=== PATIENT | female | born 1995 | race Caucasian/White ===

== ENCOUNTER 2024-03-16 11:24 | Emergency (ER) | payer OTHER, SELFPAY ==
[2024-03-16 11:25] VITALS: BP 124/78
--- NOTE | 2024-03-16 12:38 | ED.GENMED ---
History of Present Illness
General
Chief Complaint: Flank Pain
Source: patient
Exam Limitations: none
Time Seen by Provider: 03/16/24 11:58
Nursing documentation reviewed up to this point in time: agreed with
Travel History
Have you had any contact with someone who has COVID-19?: No
Do you have any symptoms of coronavirus? Fever > 100 degrees, chills, cough, shortness of breath, sore throat, loss of taste or smell, muscle aches, or headache?: No
History of Present Illness
History of Present Illness:
Patient is a 29-year-old female with past medical history of asthma, anxiety depression presenting to the emergency department today with concerns of right-sided flank discomfort right upper quadrant abdominal pain over the past few days. Also has
noticed darkening of her urine. Denies specific blood. Denies vomiting, denies specific palliation or provocation no change in bowel movements or urination.
Past History
Past History
ED Past Medical History: Asthma, Psychiatric (Night terrors, mood disorder) and Other (Migraines)
ED Past Surgical History: None
Social History
Tobacco: Smoker
Alcohol: None
Drug: Marijuana (smokes 'weed' several times per day)
Personal: Single
Living: with roommate
Employment: Employed
Family History
Family History: Cancer (breast and ovarian cancer) and Other
Review of Systems
Review of Systems
Allergies reviewed?: Yes
All Other Systems: ROS reviewed and negative except as documented in HPI and ROS
Phy Exam
Physical Exam
Physical Exam:
GENERAL: Alert , in no apparent distress
EYE: pupils equal and reactive
NECK: Supple, no significant adenopathy.
ENT: o/p clr, mmm.
CARDIAC: Regular rate and rhythm .
LUNGS: Clear breath sounds bilaterally, no acute respiratory distress, no wheezes/rales/rhonchi
ABDOMEN: Right upper quadrant abdominal pain and right-sided flank discomfort to palpation negative Andrade's. Otherwise soft benign abdomen.
NEUROLOGICAL: Alert and oriented, no focal neuro deficits
SKIN: Warm and dry, skin intact.
MUSCULOSKELETAL: No edema, well perfused.
PSYCH: Normal and appropriate interaction.
Course
Orders/Labs/Results
Orders:
Orders
03/16/24 12:08
CT Abd/Pel (IV only)-DH only Urgent
Comment:
Reason For Exam: right side abd pain and right flank pain
Test Result ONCE
03/16/24 12:22
Complete Blood Count/With Diff Urgent
Comprehensive Metabolic Panel Urgent
HCG, Serum Qualitative Screen Urgent
Lipase Urgent
Urinalysis Reflex To Culture Urgent
Date Specimen was Collected: 03/16/24
Time Specimen was Collected: 12:13
Urine Microscopic Reflex Cult Urgent
Urine Culture Urgent
VERITO Source: U
Specimen Description:
Date Specimen was Collected: 03/16/24
Time Specimen was Collected: 12:13
Abnormal Lab Results
03/16/24
12:22
WBC 14.3 H 10^3/uL
(4.8-10.8)
Abs Immat Gran (auto) 0.1 H 10^3/uL
(0-0.05)
Absolute Neuts (auto) 9.4 H 10^3/uL
(1.4-6.5)
Absolute Lymphs (auto) 3.9 H 10^3/uL
(1.2-3.4)
Absolute Monos (auto) 0.8 H 10^3/uL
(0.1-0.6)
Urine Ketones 1+ A
(Negative)
Leukocyte Esterase Rfl Trace A
(Negative)
Urine Bacteria (Reflex) Moderate A
(Negative)
03/16/24 12:22
03/16/24 12:22
Vital Signs
Initial and Last Documented VS:
Initial Vital Signs
Temp Pulse Resp BP Pulse Ox
98.8 F 88 16 124/78 97
03/16/24 11:25 03/16/24 11:25 03/16/24 11:25 03/16/24 11:25 03/16/24 11:25
Last Documented Vital Signs
Temp Pulse Resp BP Pulse Ox
98.8 F 88 16 124/78 97
03/16/24 11:25 03/16/24 11:25 03/16/24 11:25 03/16/24 11:25 03/16/24 11:25
MDM/Problems Addressed
MDM/Problems Addressed:
29-year-old female presenting to the emergency department today with concerns of right upper quadrant abdominal pain right-sided flank discomfort over the past few days as well as darkening of her urine. Denies similar symptoms in the past vital
signs normal upon arrival plan for labs and imaging for further assessment. White count of 14.3. Chemistry normal, urinalysis not consistent with urinary tract infection normal liver function test normal bilirubin level CT scan without emergent
findings. Patient generally well-appearing throughout ER stay stable for outpatient follow-up she claims that she can follow-up with a primary care doctor next week. Return precautions given.
*Critical Care Note
Total Time (30-74mins, 75-104mins- exclusive of procedures): Not Applicable
ED Attending Note
-
Portions of this chart may have been created with voice recognition software.� Occasional wrong word or��sound alike� substitutions may have occurred due to the inherent limitations of voice recognition software.
Discharge Plan
Departure
Patient Disposition: Home (Routine Discharge)
Date of Disposition: 03/16/24
Time of Disposition: 15:17
Patient with high blood pressure during this ER visit?: No
Condition: Good
Covid-19: Not Applicable
Discharge Problem:
Abdominal pain
Instructions: Flank Pain (DC)
Prescriptions:
No Action
prazosin 1 MG capsule
3 mg PO HS
prazosin 1 MG capsule
2 mg PO AMHS
nicotine 1 EACH patch 24 hour
1 ea topical DAILY
cyclobenzaprine 10 MG tablet
10 mg PO TIDPRN PRN (Reason: pain) Qty: 12 0RF
promethazine-codeine 5 ML syrup
5 ml PO Q4HPRN PRN (Reason: cough) Qty: 4 0RF
methylprednisolone [Medrol (Jason)] 4 MG tablets,dose pack
4 tab PO . DIRECT Qty: 1 0RF
omeprazole 40 MG capsule,delayed release(DR/EC)
40 mg PO Daily Qty: 30 0RF
dicyclomine 20 mg tablet
20 mg PO TID PRN (Reason: abdominal pain) Qty: 20 0RF
prednisone 50 mg tablet
50 mg PO DAILY Qty: 5 0RF
albuterol sulfate [ProAir HFA] 90 mcg/actuation HFA aerosol inhaler
1 puff inhalation Q4HPRN PRN (Reason: shortness of breath) Qty: 8.5 0RF
cyclobenzaprine 10 mg tablet
10 mg PO TID PRN (Reason: muscle spasm) Qty: 14 0RF
acetaminophen-codeine 300-30 mg Tablet
1 tab PO Q4HPRN PRN (Reason: pain) Qty: 6 0RF
Referrals:
Rocco Phan DO [Family Provider] -
Activity Restrictions/Additional Instructions:
You came to the emergency department today with concerns of flank discomfort. You had a reassuring evaluation no emergent findings. Please follow-up closely with your primary care doctor this week. Return to the emergency department for any
worsening, new or concerning symptoms.
Interventions
Interventions:
*ED COVID-19 Vaccine History Last Done: 03/16/24 11:25
EK-Beagwo-Pkkvbkiuqd Assessment Last Done: 03/16/24 12:19
ED-Female Genitourinary Assessment Last Done: 03/16/24 12:19
Discharge Date and Time
Print Language: UKRAINIAN
[2024-03-16 12:39] LABS: % Basophils 0.3 % (0-2); % Eosinophils 0.8 % (0-6); % Immature Granulocytes 0.5 % (0-0.5); % Lymphocytes 27.5 % (20.5-51.1); % Monocytes 5.3 % (1.7-9.3); % Neutrophils 65.6 % (42.2-75.2); Absolute Basophils 0.1 10^3/uL (0-0.2); Absolute Eosinophils 0.1 10^3/uL (0-0.7); Absolute Immature Granulocytes 0.1 10^3/uL (0-0.05); Absolute Lymphocytes 3.9 10^3/uL (1.2-3.4); Absolute Monocytes 0.8 10^3/uL (0.1-0.6); Absolute Neutrophils 9.4 10^3/uL (1.4-6.5); Hematocrit 40.1 % (37.0-47.0); Hemoglobin 13.5 g/dL (12.0-16.0); Mean Corp Hgb Conc. 33.7 g/dL (33.0-37.0); Mean Corpuscular Hgb 27.7 pg (27.0-31.0); Mean Corpuscular Volume 82.3 fL (81.0-99.0); Mean Platelet Volume 10.4 fL (7.4-10.4); Nucleated Red Blood Cells % 0 %; Platelet Count 326 10^3/uL (130-400); Red Blood Cell Count 4.87 10^6/uL (4.20-5.40); Red Cell Dist. Width 13.5 % (11.5-14.5); White Blood Cell Count 14.3 10^3/uL (4.8-10.8)
[2024-03-16 12:42] LABS: Urine Albumin Negative (Neg - Trace); Urine Bilirubin Negative (Negative); Urine Character Clear (Clear); Urine Color Yellow; Urine Glucose Negative (Negative); Urine Ketone 1+ (Negative); Urine Leukocyte Trace (Negative); Urine Nitrite Negative (Negative); Urine Occult Blood Negative (Negative); Urine Specific Gravity 1.015 (<1.030); Urine Urobilinogen Negative (Neg - 1+)
[2024-03-16 12:50] LABS: HCG, Serum Qualitative Screen Negative
[2024-03-16 12:54] LABS: ALT (SGPT) 27 U/L (0-35); AST (SGOT) 22 U/L (14-36); Albumin 4.2 g/dl (3.5-5.0); Alkaline Phosphatase 90 U/L (38-126); Blood Urea Nitrogen 8 mg/dl (7-17); Carbon Dioxide 27 mmol/L (22-30); Chloride 104 mmol/L (98-107); Glucose 84 mg/dl (70-99); Lipase 44 U/L (23-300); Potassium 3.8 mmol/L (3.5-5.1); Sodium 135 mmol/L (135-145); Total Protein 7.1 g/dl (6.3-8.2); eGFR > 60.00
[2024-03-16 13:07] LABS: Urine Squamous Cell >30 /LPF (Few)
[2024-03-16 13:08] LABS: Urine Amorphous Seen; Urine White Cell 0-2 /HPF (0-5)
[2024-03-16 13:09] LABS: Urine Bacteria Moderate (Negative)
== END 2024-03-16 15:56 | disposition home or self-care (01) ==
LOC: EMR 11:24
PROVIDERS: Physician Assistant; EMERGENCY PHYSICIAN Emergency Medicine; FAMILY PHYSICIAN Family Medicine Adult Medicine
DX: R10.11 Right upper quadrant pain (principal); R82.90 Unspecified abnormal findings in urine; J45.909 Unspecified asthma, uncomplicated; F41.9 Anxiety disorder, unspecified; F32.A Depression, unspecified; G43.909 Migraine, unspecified, not intractable, without status migrainosus; F17.200 Nicotine dependence, unspecified, uncomplicated; F12.90 Cannabis use, unspecified, uncomplicated; Z88.1 Allergy status to other antibiotic agents; Z88.8 Allergy status to other drugs, medicaments and biological substances
CPT/HCPCS: 99285; 74177; 80053; 81003; 81015; 83690; 84703; 85025; 87086; Q9967

== ENCOUNTER 2024-09-24 12:51 | Emergency (ER) | payer OTHER, SELFPAY ==
[2024-09-24 12:54] VITALS: BP 122/83
[2024-09-24 13:12] LABS: % Basophils 0.3 % (0-2); % Eosinophils 1.3 % (0-6); % Immature Granulocytes 0.7 % (0-0.5); % Lymphocytes 27.6 % (20.5-51.1); % Monocytes 4.3 % (1.7-9.3); % Neutrophils 65.8 % (42.2-75.2); Absolute Eosinophils 0.2 10^3/uL (0-0.7); Absolute Immature Granulocytes 0.1 10^3/uL (0-0.05); Absolute Lymphocytes 3.7 10^3/uL (1.2-3.4); Absolute Monocytes 0.6 10^3/uL (0.1-0.6); Absolute Neutrophils 8.9 10^3/uL (1.4-6.5); Hematocrit 40.6 % (37.0-47.0); Hemoglobin 13.4 g/dL (12.0-16.0); Mean Corpuscular Hgb 26.7 pg (27.0-31.0); Mean Platelet Volume 10.2 fL (7.4-10.4); Nucleated Red Blood Cells % 0 %; Platelet Count 340 10^3/uL (130-400); Red Blood Cell Count 5.01 10^6/uL (4.20-5.40); White Blood Cell Count 13.5 10^3/uL (4.8-10.8)
[2024-09-24 13:33] LABS: HCG, Serum Qualitative Screen Negative
[2024-09-24 13:35] LABS: ALT (SGPT) 21 U/L (0-35); AST (SGOT) 23 U/L (14-36); Alkaline Phosphatase 81 U/L (38-126); Blood Urea Nitrogen 8 mg/dl (7-17); Calcium 9.1 mg/dl (8.4-10.2); Carbon Dioxide 25 mmol/L (22-30); Chloride 104 mmol/L (98-107); Glucose 104 mg/dl (70-99); Potassium 4.2 mmol/L (3.5-5.1); Sodium 139 mmol/L (135-145); Total Bilirubin 0.6 mg/dl (0.2-1.3); Total Protein 6.9 g/dl (6.3-8.2); eGFR > 60.00
[2024-09-24 15:00] VITALS: BP 130/83
--- NOTE | 2024-09-24 15:12 | ED.GENMED ---
History of Present Illness
General
Chief Complaint: Vaginal Bleeding
Time Seen by Provider: 09/24/24 14:58
History of Present Illness
History of Present Illness:
29-year-old woman with history of ovarian cyst presenting to the emergency department with vaginal bleeding. Patient states that she was diagnosed with an ovarian cyst but is never had any issues with it. Last night she did notice some abdominal
cramping worse on the left side than the right side. She thought it was gas. This morning she woke up and noticed some vaginal bleeding. She states that it is red. She is not using any pads or liners. Her last period was 2 weeks ago. She does
have regular.'s. She did have sexual intercourse yesterday and noticed some light bleeding with that occasionally. She called her ACID TREATER who told her to come in for further evaluation. She denies any lightheadedness dizziness nausea vomiting. She
is not on control. No recent trauma.
Past History
Past History
ED Past Medical History: Asthma, Psychiatric (Night terrors, mood disorder) and Other (Migraines)
ED Past Surgical History: None
Social History
Tobacco: Smoker
Alcohol: None
Drug: Marijuana (smokes 'weed' several times per day)
Personal: Single
Living: with roommate
Employment: Employed
Family History
Family History: Cancer (breast and ovarian cancer) and Other
Phy Exam
Physical Exam
Physical Exam:
GENERAL: in no acute distress
HEENT: normocephalic, extraocular movements intact, moist oral mucosa
NECK: normal inspection
RESPIRATORY: no respiratory distress, clear to auscultation bilaterally
CARDIOVASCULAR: regular rate and rhythm
ABDOMEN/: soft, non-distended, non-tender to palpation, no rebound or guarding
Pelvic: External genitalia without erythema, exudate or discharge. Vaginal vault is without discharge. Cervix is of normal color without lesion. The os is closed. There is scant blood with discharge. No obvious lacerations
EXTREMITIES: non-tender, no edema/swelling
NEUROLOGIC: awake and alert, moves all extremities
SKIN: warm
Course
Orders/Labs/Results
Orders:
Orders
09/24/24 12:57
Test Result ONCE
09/24/24 13:00
Complete Blood Count/With Diff Urgent
Comprehensive Metabolic Panel Urgent
HCG, Serum Qualitative Screen Urgent
09/24/24 15:09
Pelvis & Transvaginal US [US Pelvis W Transvag Combined] Urgent
Comment:
Reason For Exam: cramping, vaginal bleeding, hx cyst
09/24/24 15:44
Urinalysis Reflex To Culture Urgent
Date Specimen was Collected: 09/24/24
Time Specimen was Collected: 12:57
Urine Microscopic Reflex Cult Urgent
Abnormal Lab Results
09/24/24 09/24/24
13:00 15:44
WBC 13.5 H 10^3/uL
(4.8-10.8)
MCH 26.7 L pg
(27.0-31.0)
Abs Immat Gran (auto) 0.1 H 10^3/uL
(0-0.05)
Absolute Neuts (auto) 8.9 H 10^3/uL
(1.4-6.5)
Absolute Lymphs (auto) 3.7 H 10^3/uL
(1.2-3.4)
Immature Gran % 0.7 H %
(0-0.5)
Glucose 104 H mg/dl
(70-99)
Ur Occult Blood Reflex 2+ A
(Negative)
Leukocyte Esterase Rfl Trace A
(Negative)
Urine RBC 3-6 A /HPF
(0-2)
Urine Bacteria (Reflex) Few A
(Negative)
09/24/24 13:00
09/24/24 13:00
Vital Signs
Initial and Last Documented VS:
Initial Vital Signs
Temp Pulse Resp BP Pulse Ox
98.4 F 110 18 122/83 98
09/24/24 12:54 09/24/24 12:54 09/24/24 12:54 09/24/24 12:54 09/24/24 12:54
Last Documented Vital Signs
Temp Pulse Resp BP Pulse Ox
98.4 F 110 18 130/83 98
09/24/24 12:54 09/24/24 12:54 09/24/24 12:54 09/24/24 15:00 09/24/24 15:00
MDM/Problems Addressed
Differential Diagnosis Includes:
Patient is a 29-year-old woman presenting to the emergency department vaginal bleeding and abdominal cramping. Vitals unremarkable and exam does show a benign abdomen. Pelvic exam with scant blood coming from the cervix mixed with discharge.
Differential consists of abnormal uterine bleeding such as fibroid or ovarian cyst rupture. History and exam not consistent with laceration. could be . Can consider STI though less likely given the patient is monogamous and no risk
factors were concern from patient. Will check blood work ultrasound.
*Critical Care Note
Total Time (30-74mins, 75-104mins- exclusive of procedures): Not Applicable
Update Note
Update Note:
On reevaluation patient resting comfortably. She states she has had very minimal bleeding. Ultrasound was no pelvic free fluid. She does have multiple left-sided ovarian cysts. Blood work was unremarkable. Patient given strict return
precautions as well as ACID TREATER follow-up. Will discharge at this time
ED Attending Note
-
Portions of this chart may have been created with voice recognition software.� Occasional wrong word or��sound alike� substitutions may have occurred due to the inherent limitations of voice recognition software.
Discharge Plan
Departure
Patient Disposition: Home (Routine Discharge)
Date of Disposition: 09/24/24
Time of Disposition: 18:16
Patient with high blood pressure during this ER visit?: No
Discharge Problem:
Vaginal bleeding
Prescriptions:
No Action
prazosin 1 MG capsule
3 mg PO HS
prazosin 1 MG capsule
2 mg PO AMHS
nicotine 1 EACH patch 24 hour
1 ea topical DAILY
cyclobenzaprine 10 MG tablet
10 mg PO TIDPRN PRN (Reason: pain) Qty: 12 0RF
promethazine-codeine 5 ML syrup
5 ml PO Q4HPRN PRN (Reason: cough) Qty: 4 0RF
methylprednisolone [Medrol (Jason)] 4 MG tablets,dose pack
4 tab PO . DIRECT Qty: 1 0RF
omeprazole 40 MG capsule,delayed release(DR/EC)
40 mg PO Daily Qty: 30 0RF
dicyclomine 20 mg tablet
20 mg PO TID PRN (Reason: abdominal pain) Qty: 20 0RF
prednisone 50 mg tablet
50 mg PO DAILY Qty: 5 0RF
albuterol sulfate [ProAir HFA] 90 mcg/actuation HFA aerosol inhaler
1 puff inhalation Q4HPRN PRN (Reason: shortness of breath) Qty: 8.5 0RF
cyclobenzaprine 10 mg tablet
10 mg PO TID PRN (Reason: muscle spasm) Qty: 14 0RF
acetaminophen-codeine 300-30 mg Tablet
1 tab PO Q4HPRN PRN (Reason: pain) Qty: 6 0RF
Referrals:
Jacqui De La O MD [Active] -
NONE,* [Family Provider] -
Interventions
Interventions:
*Risk Screen - Suicide Last Done: 09/24/24 12:54
*General Assessment Last Done: 09/24/24 14:57
*Neglect/Abuse Screening Last Done: 09/24/24 12:54
ED- Fall Risk Assessment Last Done: 09/24/24 14:57
*ED COVID-19 Vaccine History Last Done: 09/24/24 14:57
ED-Female Genitourinary Assessment Last Done: 09/24/24 14:57
Discharge Date and Time
Print Language: IRAQI
[2024-09-24 16:52] LABS: Urine Albumin Negative (Neg - Trace); Urine Bilirubin Negative (Negative); Urine Character Slightly Cloudy (Clear); Urine Color Yellow; Urine Glucose Negative (Negative); Urine Ketone Negative (Negative); Urine Leukocyte Trace (Negative); Urine Nitrite Negative (Negative); Urine Occult Blood 2+ (Negative); Urine Urobilinogen Negative (Neg - 1+)
[2024-09-24 17:57] LABS: Urine Squamous Cell >30 /LPF (Few)
[2024-09-24 17:58] LABS: Urine Bacteria Few (Negative); Urine White Cell 0-2 /HPF (0-5)
[2024-09-24 17:59] LABS: Urine Amorphous Seen
[2024-09-24 18:25] VITALS: BP 112/66
== END 2024-09-24 18:26 | disposition home or self-care (01) ==
LOC: EMR 12:51
PROVIDERS: Emergency Medicine; EMERGENCY PHYSICIAN Student in an Organized Health Care Education/Training Program
DX: N93.9 Abnormal uterine and vaginal bleeding, unspecified (principal); R10.9 Unspecified abdominal pain; N83.202 Unspecified ovarian cyst, left side; J45.909 Unspecified asthma, uncomplicated; G43.909 Migraine, unspecified, not intractable, without status migrainosus; F17.200 Nicotine dependence, unspecified, uncomplicated; Z88.1 Allergy status to other antibiotic agents; Z88.8 Allergy status to other drugs, medicaments and biological substances
CPT/HCPCS: 99284; 76830; 76856; 80053; 81003; 81015; 84703; 85025

== ENCOUNTER 2024-11-18 01:39 | Emergency (ER) | payer OTHER, SELFPAY ==
[2024-11-18 01:42] VITALS: BP 110/79
[2024-11-18 02:19] VITALS: BMI 40.2
[2024-11-18 02:24] VITALS: BP 103/65
--- NOTE | 2024-11-18 02:56 | ED.GENMED ---
History of Present Illness
General
Chief Complaint: Headache
Source: patient
Exam Limitations: none
Time Seen by Provider: 11/18/24 02:45
History of Present Illness
History of Present Illness:
This is a 29 year old female that comes in with c/o migraine. States that she doesn't get them very often and she stopped picking up her Rizatriptan. States that she started earlier today with a headache and it continued to get worse. States that
this feels like her normal migraine pattern as she has pain in the back of her head and Temporal area. States that about 2 hours ago she started with vomiting and is light sensitive. States that she also had diarrhea today. Denies any fever, chills,
chest pain, SOB, abd pain, dizziness, urinary burning.
Past History
Past History
ED Past Medical History: Asthma, Hypercholesterolemia, Psychiatric (Night terrors, mood disorder, Anxiety, Depression) and Other (Migraines, Back pain, Ovarian cyst. Eczema, )
ED Past Surgical History: None
Social History
Tobacco: Smoker
Alcohol: None
Drug: Marijuana (smokes 'weed' several times per day)
Personal: Single
Living: with roommate
Employment: Employed
Family History
Family History: Cancer (breast and ovarian cancer) and Other
Review of Systems
Review of Systems
Constitutional: Reports no symptoms; Denies fever or chills
EENT: Reports no symptoms
Respiratory: Reports no symptoms; Denies cough or trouble breathing
Cardiac: Reports no symptoms; Denies chest pain
ABD/GI: Reports nausea, vomiting and diarrhea; Denies abdominal pain
: Reports no symptoms; Denies dysuria, frequency or urgency
Musculoskeletal: Reports no symptoms
Skin: Reports no symptoms
Neurological: Reports headache; Denies dizzy
Psychiatric: Reports no symptoms
Phy Exam
General Physical Exam
General Presentation: no apparent distress
General age: appears stated age
General Skin: warm and dry
General Habitus: normal
General Mental: alert
General Hydration: dry mucous membranes
ENT Exam
ENT Exam: TM's normal, pharynx normal and neck supple
Eye Exam
Eye Exam: EOMI
Cardiovascular Exam
Cardiovascular Exam: regular rate/rhythm, no edema, no murmur and normal peripheral pulses
Pulmonary Exam
Pulmonary Exam: lungs clear, no respiratory distress, no rales, chest non tender, no crackles, no rhonchi, no wheezing and no cough
Gastrointestinal Exam
Gastrointestinal Exam: normal bowel sounds, non tender, soft, no organomegaly, no pulsatile mass and non distended
Musculoskeletal Exam
Musculoskeletal Exam: full ROM and no edema
Skin Exam
Skin Exam: normal color, warm/dry, no rash and no petechia
Psychiatric Exam
Psychiatric Exam: normal mood/affect
Course
Orders/Labs/Results
Orders:
Orders
11/18/24 02:55
0.9% Sodium Chloride 1000 ml [Nss] 1,000 ml IV BOLUS
Diphenhydramine [Benadryl] 25 mg IV NOW STA
Ketorolac [Toradol] 30 mg IV NOW STA
Metoclopramide [Reglan] 10 mg IV NOW STA
11/18/24 03:03
Test Result ONCE
11/18/24 03:06
Complete Blood Count/With Diff Urgent
Comprehensive Metabolic Panel Urgent
HCG, Serum Qualitative Screen Urgent
Abnormal Lab Results
11/18/24
03:06
WBC 13.4 H 10^3/uL
(4.8-10.8)
Hgb 11.9 L g/dL
(12.0-16.0)
MCH 26.9 L pg
(27.0-31.0)
MCHC 32.1 L g/dL
(33.0-37.0)
Abs Immat Gran (auto) 0.1 H 10^3/uL
(0-0.05)
Absolute Neuts (auto) 10.2 H 10^3/uL
(1.4-6.5)
Absolute Monos (auto) 0.7 H 10^3/uL
(0.1-0.6)
Immature Gran % 0.6 H %
(0-0.5)
Neutrophils % 76.2 H %
(42.2-75.2)
Lymphocytes % 16.4 L %
(20.5-51.1)
Glucose 107 H mg/dl
(70-99)
11/18/24 03:06
11/18/24 03:06
Leukocytosis, Hgb slightly low. Glucose nonfasting. HCG negative.
Vital Signs
Initial and Last Documented VS:
Initial Vital Signs
Pulse Resp BP Pulse Ox
83 20 110/79 98
11/18/24 01:42 11/18/24 01:42 11/18/24 01:42 11/18/24 01:42
Last Documented Vital Signs
Pulse Resp BP Pulse Ox
83 20 115/62 98
11/18/24 01:42 11/18/24 01:42 11/18/24 03:00 11/18/24 01:42
MDM/Problems Addressed
Differential Diagnosis Includes:
Migraines
MDM/Problems Addressed:
This is a 29 year old female that comes in with c/o migraines. States that she doesn't get them often but this started yesterday and this continued to get worse all day.
Will medicate for pain and check labs and give IV fluids.
Back into see patient. Patient was sleeping. Awakened. States that she is feeling better. Explained that her White blood cell count is slightly elevated. The fact that patient had vomiting and diarrhea she could have the Viral GI syndrome on top of
her Migraine. Will sent a prescription for Reglan to her pharmacy to help with any nausea. vomiting. Patient to use Tylenol and Ibuprofen for pain. Return with any concerns .
Chronic conditions affecting care:
Migraines
Acute Exacerbation and/or Progression of Chronic Illness:
Migraines
*Pulse Oximetry
Patient hypoxic: no
*EKG
Interpreted by ED Provider?: NA
Rate: EKG- N/A
*Cutting Machine Operator Interpretation
Rate: Cutting Machine Operator- N/A
*Critical Care Note
Total Time (30-74mins, 75-104mins- exclusive of procedures): Not Applicable
ED Attending Note
-
Portions of this chart may have been created with voice recognition software.� Occasional wrong word or��sound alike� substitutions may have occurred due to the inherent limitations of voice recognition software.
Discharge Plan
Departure
Patient Disposition: Home (Routine Discharge)
Date of Disposition: 11/18/24
Time of Disposition: 03:55
Patient with high blood pressure during this ER visit?: No
Condition: Good
Covid-19: Not Applicable
Discharge Problem:
Migraine, Nausea, vomiting and diarrhea
Instructions: Migraines (DC), Acute Diarrhea, Acute Nausea and Vomiting
Prescriptions:
New
metoclopramide HCl [Reglan] 10 mg tablet
10 mg PO Q8HPRN PRN (Reason: nausea and vomiting) Qty: 9 0RF
No Action
prazosin 1 MG capsule
3 mg PO HS
prazosin 1 MG capsule
2 mg PO AMHS
nicotine 1 EACH patch 24 hour
1 ea topical DAILY
cyclobenzaprine 10 MG tablet
10 mg PO TIDPRN PRN (Reason: pain) Qty: 12 0RF
promethazine-codeine 5 ML syrup
5 ml PO Q4HPRN PRN (Reason: cough) Qty: 4 0RF
methylprednisolone [Medrol (Jason)] 4 MG tablets,dose pack
4 tab PO . DIRECT Qty: 1 0RF
omeprazole 40 MG capsule,delayed release(DR/EC)
40 mg PO Daily Qty: 30 0RF
dicyclomine 20 mg tablet
20 mg PO TID PRN (Reason: abdominal pain) Qty: 20 0RF
prednisone 50 mg tablet
50 mg PO DAILY Qty: 5 0RF
albuterol sulfate [ProAir HFA] 90 mcg/actuation HFA aerosol inhaler
1 puff inhalation Q4HPRN PRN (Reason: shortness of breath) Qty: 8.5 0RF
cyclobenzaprine 10 mg tablet
10 mg PO TID PRN (Reason: muscle spasm) Qty: 14 0RF
acetaminophen-codeine 300-30 mg Tablet
1 tab PO Q4HPRN PRN (Reason: pain) Qty: 6 0RF
Referrals:
Rocco Phan DO [Family Provider] - Call in 1-3 days for appt
Activity Restrictions/Additional Instructions:
As discussed, your blood work shows that your White blood cell count is slightly elevated. You may have the Viral GI syndrome that is going around on top of your Migraine. Please increase your water intake to 8-8oz glasses daily. You have had a
prescription for Reglan sent to your Pharmacy. This will help with any nausea/vomiting. Follow up with the family doctor for recheck. You may use Tylenol 1000mg every 6 hours for headache pain and Ibuprofen 600mg every 6 hours with food. IF YOU HAVE
ANY OTHER CONCERNS PLEASE RETURN TO THE EMERGENCY ROOM.
Interventions
Interventions:
*Risk Screen - Suicide Last Done: 11/18/24 01:42
*General Assessment Last Done: 11/18/24 01:42
*Neglect/Abuse Screening Last Done: 11/18/24 03:41
ED- Fall Risk Assessment Last Done: 11/18/24 02:19
*ED COVID-19 Vaccine History Last Done: 11/18/24 01:42
ED- Neurological Assessment Last Done: 11/18/24 02:18
Discharge Date and Time
Print Language: [id number]
[2024-11-18 03:00] VITALS: BP 115/62
[2024-11-18] MEDS: NSS 1000 IV (03:03)
[2024-11-18] MEDS: REGLAN 10 MG IV (03:06)
[2024-11-18] MEDS: BENADRYL 25 MG IV (03:07)
[2024-11-18] MEDS: TORADOL 30 MG IV (03:08)
[2024-11-18 03:21] LABS: % Basophils 0.5 % (0-2); % Eosinophils 1.3 % (0-6); % Immature Granulocytes 0.6 % (0-0.5); % Lymphocytes 16.4 % (20.5-51.1); % Neutrophils 76.2 % (42.2-75.2); Absolute Basophils 0.1 10^3/uL (0-0.2); Absolute Eosinophils 0.2 10^3/uL (0-0.7); Absolute Immature Granulocytes 0.1 10^3/uL (0-0.05); Absolute Lymphocytes 2.2 10^3/uL (1.2-3.4); Absolute Monocytes 0.7 10^3/uL (0.1-0.6); Absolute Neutrophils 10.2 10^3/uL (1.4-6.5); Hematocrit 37.1 % (37.0-47.0); Hemoglobin 11.9 g/dL (12.0-16.0); Mean Corp Hgb Conc. 32.1 g/dL (33.0-37.0); Mean Corpuscular Hgb 26.9 pg (27.0-31.0); Mean Corpuscular Volume 83.9 fL (81.0-99.0); Mean Platelet Volume 10.3 fL (7.4-10.4); Nucleated Red Blood Cells % 0 %; Platelet Count 311 10^3/uL (130-400); Red Blood Cell Count 4.42 10^6/uL (4.20-5.40); Red Cell Dist. Width 13.3 % (11.5-14.5); White Blood Cell Count 13.4 10^3/uL (4.8-10.8)
[2024-11-18 03:40] LABS: HCG, Serum Qualitative Screen Negative
[2024-11-18 03:45] LABS: ALT (SGPT) 28 U/L (0-35); AST (SGOT) 23 U/L (14-36); Albumin 3.6 g/dl (3.5-5.0); Alkaline Phosphatase 104 U/L (38-126); Blood Urea Nitrogen 17 mg/dl (7-17); Calcium 8.4 mg/dl (8.4-10.2); Carbon Dioxide 27 mmol/L (22-30); Chloride 104 mmol/L (98-107); Estimated Creatinine Clearance > 125 ml/min; Glucose 107 mg/dl (70-99); Potassium 4.2 mmol/L (3.5-5.1); Sodium 137 mmol/L (135-145); Total Bilirubin 0.5 mg/dl (0.2-1.3); Total Protein 6.4 g/dl (6.3-8.2); eGFR > 60.00
[2024-11-18 04:00] VITALS: BP 99/78
== END 2024-11-18 04:05 | disposition home or self-care (01) ==
LOC: EMR 01:39
PROVIDERS: Clinical Nurse Specialist Family Health; EMERGENCY PHYSICIAN Emergency Medicine; FAMILY PHYSICIAN Family Medicine Adult Medicine
DX: G43.909 Migraine, unspecified, not intractable, without status migrainosus (principal); R19.7 Diarrhea, unspecified; J45.909 Unspecified asthma, uncomplicated; E78.00 Pure hypercholesterolemia, unspecified; F17.200 Nicotine dependence, unspecified, uncomplicated
CPT/HCPCS: 96374; 96375; 96361; 99284; 80053; 84703; 85025

== ENCOUNTER 2025-05-29 14:54 | Emergency (ER) | payer OTHER, SELFPAY ==
[2025-05-29 14:56] VITALS: BP 124/79
[2025-05-29 16:04] VITALS: BMI 41.4
[2025-05-29 16:19] LABS: Hematocrit 38.8 % (37.0-47.0); Hemoglobin 12.7 g/dL (12.0-16.0); Mean Corp Hgb Conc. 32.7 g/dL (33.0-37.0); Mean Corpuscular Volume 80.7 fL (81.0-99.0); Nucleated Red Blood Cells % 0 %; Platelet Count 335 10^3/uL (130-400); Red Cell Dist. Width 14.0 % (11.5-14.5)
[2025-05-29 16:21] LABS: Urine Character Clear (Clear)
--- NOTE | 2025-05-29 16:23 | ED.GENMED ---
History of Present Illness
General
Chief Complaint: Abdominal Pain
Source: patient
Exam Limitations: none
Time Seen by Provider: 05/29/25 16:09
Nursing documentation reviewed up to this point in time: agreed with
History of Present Illness
History of Present Illness:
Patient to ED with complaint of left sided abd. pain x 2 weeks. States 1 mos ago she was treated with a colon cleanse by private GI for costipation. Since then she has had diarrea. 2 weeks ago she developed left sided abd pain and now notes her
urine is dark. Advised by her GI to come to ED. Denies fever/chills. Reports poor appetite. No vomiting.
Past History
Past History
ED Past Medical History: Asthma, Hypercholesterolemia, Psychiatric (Night terrors, mood disorder, Anxiety, Depression) and Other (Migraines, Back pain, Ovarian cyst. Eczema, )
ED Past Surgical History: Other (wisdom teeth)
Social History
Tobacco: Smoker
Alcohol: None
Drug: Marijuana (smokes 'weed' several times per day) and Other (Meth addiction - clean x 7 years)
Personal: Single
Living: with roommate
Employment: Not employed
Family History
Family History: Cancer (breast and ovarian cancer) and Other
Review of Systems
Review of Systems
Allergies reviewed?: Yes
All Other Systems: ROS reviewed and negative except as documented in HPI and ROS
Constitutional: Reports no symptoms
EENT: Reports no symptoms
Respiratory: Reports no symptoms
Cardiac: Reports no symptoms
ABD/GI: Reports abdominal pain (left sided abd. pain) and diarrhea
: Reports dark urine
Musculoskeletal: Reports no symptoms
Skin: Reports no symptoms
Neurological: Reports no symptoms
Psychiatric: Reports no symptoms
Phy Exam
General Physical Exam
General Presentation: well appearing and mild distress
General age: appears stated age
General Skin: warm and dry
General Habitus: normal
General Mental: alert
Gastrointestinal Exam
Gastrointestinal Exam: soft, no organomegaly, no pulsatile mass, non distended and no cva tenderness
Palpation: left upper quadrant: Moderate tenderness, left lower quadrant: Moderate tenderness, right upper quadrant: No tenderness and right lower quadrant: No tenderness
Musculoskeletal Exam
Musculoskeletal Exam: full ROM and neuro vasc intact
Skin Exam
Skin Exam: normal color, warm/dry and no rash
Psychiatric Exam
Psychiatric Exam: normal mood/affect
Course
Orders/Labs/Results
Orders:
Orders
05/29/25 16:11
Complete Blood Count/With Diff Urgent
Comprehensive Metabolic Panel Urgent
HCG, Serum Qualitative Screen Urgent
Comment: ADD ON
Lipase Urgent
Urinalysis Reflex To Culture Urgent
Date Specimen was Collected: 05/29/25
Time Specimen was Collected: 16:04
Urine Microscopic Reflex Cult Urgent
Urine Culture Urgent
VERITO Source: U
Specimen Description:
Date Specimen was Collected: 05/29/25
Time Specimen was Collected: 16:04
05/29/25 16:21
Ketorolac [Toradol] 30 mg IV NOW STA
Test Result ONCE
05/29/25 16:22
CT Abd/pel W Iv And Oral Contr Urgent
Comment:
Reason For Exam: left abd pain
0.9% Sodium Chloride 1000 ml [Nss] 1,000 ml IV BOLUS
Iohexol [Omnipaque] See Protocol PO NOW STA
05/29/25 16:27
Add On- LAB Urgent
Tests Added?: HCG qual serum
05/29/25 18:28
Dicyclomine HCl [Bentyl] 20 mg .ROUTE .STK-MED ONE
05/29/25 18:31
Dicyclomine HCl [Bentyl] 20 mg IM NOW STA
Abnormal Lab Results
05/29/25
16:11
WBC 14.5 H 10^3/uL
(4.8-10.8)
MCV 80.7 L fL
(81.0-99.0)
MCH 26.4 L pg
(27.0-31.0)
MCHC 32.7 L g/dL
(33.0-37.0)
Abs Immat Gran (auto) 0.1 H 10^3/uL
(0-0.05)
Absolute Neuts (auto) 9.7 H 10^3/uL
(1.4-6.5)
Absolute Lymphs (auto) 3.6 H 10^3/uL
(1.2-3.4)
Absolute Monos (auto) 0.8 H 10^3/uL
(0.1-0.6)
Leukocyte Esterase Rfl 2+ A
(Negative)
Urine Bacteria (Reflex) Many A
(Negative)
Urine Albumin (Reflex) 1+ A
(Neg - Trace)
05/29/25 16:11
05/29/25 16:11
Vital Signs
Initial and Last Documented VS:
Initial Vital Signs
Temp Pulse Resp BP Pulse Ox
98.1 F 92 15 124/79 98
05/29/25 14:56 05/29/25 14:56 05/29/25 14:56 05/29/25 14:56 05/29/25 14:56
Last Documented Vital Signs
Temp Pulse Resp BP Pulse Ox
98.1 F 92 15 106/76 96
05/29/25 14:56 05/29/25 14:56 05/29/25 14:56 05/29/25 17:00 05/29/25 18:36
*Radiology
Radiology exam reviewed: radiology read reviewed
*Pulse Oximetry
SaO2: 98
Oxygen Mode of Delivery: Room air
Patient hypoxic: no
*Critical Care Note
Total Time (30-74mins, 75-104mins- exclusive of procedures): Not Applicable
Update Note
Update Note:
Patient to ED wtih left abd pain. Labs, CT results reviewed with her. No findings to explain her pain. Responded well to dicyclomine. Now pain free. Will discharge home. Given rx for dicyclomine. SHe will follow up wth her private GI. Given
instructions on s/s to return to ED and she is agreeable to plan.
ED Attending Note
-
Portions of this chart may have been created with voice recognition software.� Occasional wrong word or��sound alike� substitutions may have occurred due to the inherent limitations of voice recognition software.
Discharge Plan
Departure
Patient Disposition: Home (Routine Discharge)
Date of Disposition: 05/29/25
Time of Disposition: 20:27
Patient with high blood pressure during this ER visit?: No
Condition: Good
Covid-19: Not Applicable
Discharge Problem:
Abdominal pain
Instructions: Abdominal Pain
Prescriptions:
New
dicyclomine 10 mg capsule
10 mg PO TID PRN (Reason: abdominal pain) Qty: 15 0RF
No Action
prazosin 1 MG capsule
3 mg PO HS
prazosin 1 MG capsule
2 mg PO AMHS
nicotine 1 EACH patch 24 hour
1 ea topical DAILY
cyclobenzaprine 10 MG tablet
10 mg PO TIDPRN PRN (Reason: pain) Qty: 12 0RF
promethazine-codeine 5 ML syrup
5 ml PO Q4HPRN PRN (Reason: cough) Qty: 4 0RF
methylprednisolone [Medrol (Jason)] 4 MG tablets,dose pack
4 tab PO . DIRECT Qty: 1 0RF
omeprazole 40 MG capsule,delayed release(DR/EC)
40 mg PO Daily Qty: 30 0RF
dicyclomine 20 mg tablet
20 mg PO TID PRN (Reason: abdominal pain) Qty: 20 0RF
prednisone 50 mg tablet
50 mg PO DAILY Qty: 5 0RF
albuterol sulfate [ProAir HFA] 90 mcg/actuation HFA aerosol inhaler
1 puff inhalation Q4HPRN PRN (Reason: shortness of breath) Qty: 8.5 0RF
cyclobenzaprine 10 mg tablet
10 mg PO TID PRN (Reason: muscle spasm) Qty: 14 0RF
acetaminophen-codeine 300-30 mg Tablet
1 tab PO Q4HPRN PRN (Reason: pain) Qty: 6 0RF
metoclopramide HCl [Reglan] 10 mg tablet
10 mg PO Q8HPRN PRN (Reason: nausea and vomiting) Qty: 9 0RF
Referrals:
Yamini Ballesteros MD, Resident [Family Provider, General]
Activity Restrictions/Additional Instructions:
Follow up with your community living specialist. Return to the emergency department immediately for any changes in/worsening of your symptoms.
Interventions
Interventions:
*Risk Screen - Suicide Last Done: 05/29/25 14:56
*General Assessment Last Done: 05/29/25 14:56
*Neglect/Abuse Screening Last Done: 05/29/25 14:56
*ED- Fall Risk Assessment Last Done: 05/29/25 21:00
*ED COVID-19 Vaccine History Last Done: 05/29/25 14:56
*Nursing Disposition Last Done: 05/29/25 21:01
ZZ-Ieedit-Dpbhfdktwm Assessment Last Done: 05/29/25 17:00
Discharge Date and Time
Discharge Date/Time: 05/29/25 21:01
Print Language: NAURUAN
[2025-05-29 16:32] LABS: AST (SGOT) 20 U/L (14-36); Albumin 3.9 g/dl (3.5-5.0); Alkaline Phosphatase 101 U/L (38-126); Blood Urea Nitrogen 11 mg/dl (7-17); Carbon Dioxide 26 mmol/L (22-30); Chloride 107 mmol/L (98-107); Estimated Creatinine Clearance > 125 ml/min; Glucose 77 mg/dl (70-99); Lipase 50 U/L (23-300); Potassium 4.0 mmol/L (3.5-5.1); Sodium 137 mmol/L (135-145); Total Protein 6.9 g/dl (6.3-8.2); eGFR > 60.00
[2025-05-29] MEDS: NSS 1000 IV (16:32)
[2025-05-29 16:38] LABS: Urine Red Blood Cell 0-2 /HPF (0-2); Urine White Cell 0-2 /HPF (0-5)
[2025-05-29] MEDS: TORADOL 30 MG IV (16:43)
[2025-05-29] MEDS: OMNIPAQUE 50 ML PO (16:43)
[2025-05-29 16:47] LABS: HCG, Serum Qualitative Screen Negative
[2025-05-29 16:49] VITALS: BP 103/51
[2025-05-29 16:55] LABS: ALT (SGPT) 28 U/L (0-35); Calcium 8.7 mg/dl (8.4-10.2)
[2025-05-29 17:00] VITALS: BP 106/76
[2025-05-29] MEDS: BENTYL 20 MG IM (18:31)
== END 2025-05-29 21:01 | disposition home or self-care (01) ==
LOC: EMR 14:54
PROVIDERS: EMERGENCY PHYSICIAN Emergency Medicine; FAMILY PHYSICIAN Student in an Organized Health Care Education/Training Program
DX: R10.9 Unspecified abdominal pain (principal); R19.7 Diarrhea, unspecified; R63.0 Anorexia; E78.00 Pure hypercholesterolemia, unspecified; J45.909 Unspecified asthma, uncomplicated; F39 Unspecified mood [affective] disorder; F41.9 Anxiety disorder, unspecified; F32.A Depression, unspecified; G43.909 Migraine, unspecified, not intractable, without status migrainosus; L30.9 Dermatitis, unspecified; F15.11 Other stimulant abuse, in remission; F12.90 Cannabis use, unspecified, uncomplicated; F17.200 Nicotine dependence, unspecified, uncomplicated; Z88.1 Allergy status to other antibiotic agents; Z88.8 Allergy status to other drugs, medicaments and biological substances
CPT/HCPCS: 99284; 96361; 96372; 96374; 74177; 80053; 81003; 81015; 83690; 84703; 85025; 87086; Q9967

== ENCOUNTER 2025-06-07 18:06 | Emergency (ER) | payer OTHER, SELFPAY ==
[2025-06-07 18:13] VITALS: BP 114/69
[2025-06-07 18:36] LABS: Hematocrit 39.4 % (37.0-47.0); Hemoglobin 12.4 g/dL (12.0-16.0); Mean Corp Hgb Conc. 31.5 g/dL (33.0-37.0); Mean Corpuscular Volume 82.4 fL (81.0-99.0); Nucleated Red Blood Cells % 0 %; Platelet Count 385 10^3/uL (130-400); Red Cell Dist. Width 14.1 % (11.5-14.5)
[2025-06-07 18:40] LABS: Urine Character Clear (Clear)
[2025-06-07 18:57] LABS: Urine Squamous Cell >30 /LPF (Few); Urine White Cell 0-2 /HPF (0-5)
[2025-06-07 18:58] LABS: ALT (SGPT) 23 U/L (0-35); AST (SGOT) 17 U/L (14-36); Albumin 3.6 g/dl (3.5-5.0); Alkaline Phosphatase 110 U/L (38-126); Blood Urea Nitrogen 10 mg/dl (7-17); Calcium 8.1 mg/dl (8.4-10.2); Carbon Dioxide 25 mmol/L (22-30); Chloride 106 mmol/L (98-107); Glucose 90 mg/dl (70-99); Potassium 4.0 mmol/L (3.5-5.1); Sodium 136 mmol/L (135-145); Total Protein 6.5 g/dl (6.3-8.2); Urine Red Blood Cell 16-20 /HPF (0-2); eGFR > 60.00
== END 2025-06-07 19:58 ==
LOC: EMR 18:06
PROVIDERS: Emergency Medicine
DX: R10.9 Unspecified abdominal pain (principal); M79.89 Other specified soft tissue disorders; Z53.21 Procedure and treatment not carried out due to patient leaving prior to being seen by health care provider
CPT/HCPCS: 80053; 81003; 81015; 85025; 87086

== ENCOUNTER → 2025-06-12 15:09 | Outpatient (REF) | payer OTHER, SELFPAY | LOC: HWRAD 15:09 | PROVIDERS: ATTENDING PHYSICIAN Student in an Organized Health Care Education/Training Program | DX: M25.561 Pain in right knee (principal) | CPT/HCPCS: 73564 ==

== ENCOUNTER 2025-09-08 21:58 | Emergency (ER) | payer OTHER, SELFPAY ==
[2025-09-08 22:01] VITALS: BP 123/74
--- NOTE | 2025-09-08 22:55 | ED.GENMED ---
History of Present Illness
General
Chief Complaint: Musculo-Skeletal Complaint
Source: patient
Exam Limitations: none
Time Seen by Provider: 09/08/25 22:50
History of Present Illness
History of Present Illness:
Patient accidentally crushed her right hand in a doorway. Mostly injuring the thumb side. Pain is moderate in nature.
Past History
Past History
ED Past Medical History: Asthma, Hypercholesterolemia, Psychiatric (Night terrors, mood disorder, Anxiety, Depression) and Other (Migraines, Back pain, Ovarian cyst. Eczema, )
ED Past Surgical History: Other (wisdom teeth)
Social History
Tobacco: Smoker
Alcohol: None
Drug: Marijuana (smokes 'weed' several times per day) and Other (Meth addiction - clean x 7 years)
Personal: Single
Living: with roommate
Employment: Not employed
Family History
Family History: Cancer (breast and ovarian cancer) and Other
Review of Systems
Review of Systems
All Other Systems: Not applicable
Phy Exam
Physical Exam
Physical Exam:
General: Nontoxic appearing in no distress
Skin: Warm and dry, no rash
Neuro: Alert, nontoxic, grossly nonfocal
Psychiatric: Good eye contact and appropriate
Musculoskeletal: Moderate swelling of the right thenar area with areas of ecchymosis. No open wound. Motor or sensory neurovascular intact. Some pain with first MCP joint movement however this likely is mostly from the soft tissue injury at the
thenar area. No tenderness on the hypothenar area. Digits normal.
Course
Orders/Labs/Results
Orders:
Orders
09/08/25 22:05
Hand, Right 3 View [CR Hand - Right Min 3 Views] Urgent
Comment:
Reason For Exam: slammed in door
09/08/25 22:55
Thumb Spica Right-Treatment ONCE
Vital Signs
Initial and Last Documented VS:
Initial Vital Signs
Temp Pulse Resp BP Pulse Ox
97.4 F 100 16 123/74 100
09/08/25 22:01 09/08/25 22:01 09/08/25 22:01 09/08/25 22:01 09/08/25 22:01
Last Documented Vital Signs
Temp Pulse Resp BP Pulse Ox
97.4 F 100 16 123/74 100
09/08/25 22:01 09/08/25 22:01 09/08/25 22:01 09/08/25 22:01 09/08/25 22:59
MDM/Problems Addressed
Differential Diagnosis Includes:
Appears to be mostly soft tissue injury to the muscle at the thenar area. Doubt ligamentous injury. Will place thumb spica and orthopedic follow-up
*Radiology
Radiology exam reviewed: radiology read reviewed (Negative x-ray. Old fifth metacarpal fracture)
*Pulse Oximetry
SaO2: 100
Oxygen Mode of Delivery: Room air
Patient hypoxic: no
*Critical Care Note
Total Time (30-74mins, 75-104mins- exclusive of procedures): Not Applicable
ED Attending Note
-
Portions of this chart may have been created with voice recognition software.� Occasional wrong word or��sound alike� substitutions may have occurred due to the inherent limitations of voice recognition software.
Discharge Plan
Departure
Patient Disposition: Home (Routine Discharge)
Date of Disposition: 09/08/25
Time of Disposition: 22:57
Patient with high blood pressure during this ER visit?: Yes
Discharge Problem:
Right hand injury
Instructions: BLOOD PRESSURE
Prescriptions:
No Action
prazosin 1 MG capsule
3 mg PO HS
prazosin 1 MG capsule
2 mg PO AMHS
nicotine 1 EACH patch 24 hour
1 ea topical DAILY
cyclobenzaprine 10 MG tablet
10 mg PO TIDPRN PRN (Reason: pain) Qty: 12 0RF
promethazine-codeine 5 ML syrup
5 ml PO Q4HPRN PRN (Reason: cough) Qty: 4 0RF
methylprednisolone [Medrol (Jason)] 4 MG tablets,dose pack
4 tab PO . DIRECT Qty: 1 0RF
omeprazole 40 MG capsule,delayed release(DR/EC)
40 mg PO Daily Qty: 30 0RF
dicyclomine 20 mg tablet
20 mg PO TID PRN (Reason: abdominal pain) Qty: 20 0RF
prednisone 50 mg tablet
50 mg PO DAILY Qty: 5 0RF
albuterol sulfate [ProAir HFA] 90 mcg/actuation HFA aerosol inhaler
1 puff inhalation Q4HPRN PRN (Reason: shortness of breath) Qty: 8.5 0RF
cyclobenzaprine 10 mg tablet
10 mg PO TID PRN (Reason: muscle spasm) Qty: 14 0RF
acetaminophen-codeine 300-30 mg Tablet
1 tab PO Q4HPRN PRN (Reason: pain) Qty: 6 0RF
metoclopramide HCl [Reglan] 10 mg tablet
10 mg PO Q8HPRN PRN (Reason: nausea and vomiting) Qty: 9 0RF
dicyclomine 10 mg capsule
10 mg PO TID PRN (Reason: abdominal pain) Qty: 15 0RF
Referrals:
Deb Sanchez DO [Active, Orthopedics] - Follow up in 2-3 days
Rocco Phan DO [Primary Care Provider, Family Practice]
NONE,* [Family Provider, Internal Medicine]
Activity Restrictions/Additional Instructions:
Elevate, ice
Advil or Motrin for pain
Call the orthopedist for close follow-up
Return sooner with increased pain increased swelling numbness tingling weakness or any other concerning symptoms
Interventions
Interventions:
*Risk Screen - Suicide Last Done: 09/08/25 22:01
*General Assessment Last Done: 09/08/25 22:01
*Neglect/Abuse Screening Last Done: 09/08/25 22:01
*ED- Fall Risk Assessment Last Done: 09/08/25 22:01
*ED COVID-19 Vaccine History Last Done: 09/08/25 22:01
*ED Influenza Vaccine History Last Done: 09/08/25 22:01
Discharge Date and Time
Print Language: LIBERIAN
== END 2025-09-08 23:26 | disposition home or self-care (01) ==
LOC: EMR 21:58
PROVIDERS: EMERGENCY PHYSICIAN Emergency Medicine; PRIMARYCARE PHYSICIAN Family Medicine Adult Medicine
DX: S69.91XA Unspecified injury of right wrist, hand and finger(s), initial encounter (principal); W22.09XA Striking against other stationary object, initial encounter; J45.909 Unspecified asthma, uncomplicated; E78.00 Pure hypercholesterolemia, unspecified; F51.4 Sleep terrors [night terrors]; G47.9 Sleep disorder, unspecified; F39 Unspecified mood [affective] disorder; F17.200 Nicotine dependence, unspecified, uncomplicated; Z80.3 Family history of malignant neoplasm of breast; Z80.41 Family history of malignant neoplasm of ovary
CPT/HCPCS: 99283; 73130

== ENCOUNTER 2025-10-15 10:33 | Emergency (ER) | payer OTHER, SELFPAY ==
[2025-10-15 10:42] VITALS: BP 130/84
--- NOTE | 2025-10-15 11:44 | ED.SKININJ ---
HPI-Injury
General
Chief Complaint: Skin Problem
Source: patient
Exam Limitations: none
Time Seen by Provider: 10/15/25 11:
History of Present Illness-Injury
Initial Injury comments:
30-year-old female otherwise healthy presents complaining of red painful bumps over the hands and bilateral lower extremities starting yesterday. She may have been exposed to her sick child 2 days prior. She also notes runny nose sore throat and
fatigue. She states she was sleeping significantly yesterday. No vomiting. No measurable fever. No headache. No other complaints at this time
Past History
Past History
ED Past Medical History: Asthma, Hypercholesterolemia, Psychiatric (Night terrors, mood disorder, Anxiety, Depression) and Other (Migraines, Back pain, Ovarian cyst. Eczema, )
ED Past Surgical History: Other (wisdom teeth)
Social History
Tobacco: Smoker
Alcohol: None
Drug: Marijuana (smokes 'weed' several times per day) and Other (Meth addiction - clean x 7 years)
Personal: Single
Living: with roommate
Employment: Not employed
Family History
Family History: Cancer (breast and ovarian cancer) and Other
Phy Exam
Physical Exam
Physical Exam:
General: Well-appearing female no acute respiratory distress
HEENT normal cephalic atraumatic posterior pharynx without erythema or exudate neck is supple no adenopathy
Skin: Slightly painful raised erythematous areas of skin over the hands and bilateral knees. These are tender to touch. These are in a symmetric distribution
Extremities: No cyanosis
Course
Vital Signs
Initial and Last Documented VS:
Initial Vital Signs
Temp Pulse Resp BP Pulse Ox
98.5 F 105 16 130/84 98
10/15/25 10:42 10/15/25 10:42 10/15/25 10:42 10/15/25 10:42 10/15/25 10:42
Last Documented Vital Signs
Temp Pulse Resp BP Pulse Ox
98.5 F 105 16 130/84 98
10/15/25 10:42 10/15/25 10:42 10/15/25 10:42 10/15/25 10:42 10/15/25 11:48
MDM/Problems Addressed
Differential Diagnosis Includes:
Patient presents for painful rash over the legs and hands also with URI-like symptoms. I suspect underlying viral exanthem perhaps Bacci virus or knbf-dfdj-mgs-mouth disease. No evidence of abscess. Do not suspect insect bites. Recommended
supportive care including ibuprofen Tylenol Benadryl if needed. No indication for any further intervention. Stable for discharge
*Pulse Oximetry
SaO2: 98
Oxygen Mode of Delivery: Room air
Patient hypoxic: no
*Critical Care Note
Total Time (30-74mins, 75-104mins- exclusive of procedures): Not Applicable
ED Attending Note
-
Portions of this chart may have been created with voice recognition software.� Occasional wrong word or��sound alike� substitutions may have occurred due to the inherent limitations of voice recognition software.
Discharge Plan
Departure
Patient Disposition: Home (Routine Discharge)
Date of Disposition: 10/15/25
Time of Disposition: 11:47
Patient with high blood pressure during this ER visit?: No
Discharge Problem:
Acute viral syndrome
Instructions: Skin Rash (DC)
Prescriptions:
No Action
prazosin 1 MG capsule
3 mg PO HS
prazosin 1 MG capsule
2 mg PO AMHS
nicotine 1 EACH patch 24 hour
1 ea topical DAILY
cyclobenzaprine 10 MG tablet
10 mg PO TIDPRN PRN (Reason: pain) Qty: 12 0RF
promethazine-codeine 5 ML syrup
5 ml PO Q4HPRN PRN (Reason: cough) Qty: 4 0RF
methylprednisolone [Medrol (Jason)] 4 MG tablets,dose pack
4 tab PO . DIRECT Qty: 1 0RF
omeprazole 40 MG capsule,delayed release(DR/EC)
40 mg PO Daily Qty: 30 0RF
dicyclomine 20 mg tablet
20 mg PO TID PRN (Reason: abdominal pain) Qty: 20 0RF
prednisone 50 mg tablet
50 mg PO DAILY Qty: 5 0RF
albuterol sulfate [ProAir HFA] 90 mcg/actuation HFA aerosol inhaler
1 puff inhalation Q4HPRN PRN (Reason: shortness of breath) Qty: 8.5 0RF
cyclobenzaprine 10 mg tablet
10 mg PO TID PRN (Reason: muscle spasm) Qty: 14 0RF
acetaminophen-codeine 300-30 mg Tablet
1 tab PO Q4HPRN PRN (Reason: pain) Qty: 6 0RF
metoclopramide HCl [Reglan] 10 mg tablet
10 mg PO Q8HPRN PRN (Reason: nausea and vomiting) Qty: 9 0RF
dicyclomine 10 mg capsule
10 mg PO TID PRN (Reason: abdominal pain) Qty: 15 0RF
Referrals:
UNKNOWN - PT DOES,NOT KNOW [Family Provider]
Activity Restrictions/Additional Instructions:
You may use ibuprofen or Tylenol if needed for pain or Benadryl as needed for itch. This is likely related to a viral illness. Return here for worsening symptoms otherwise follow-up with your doctor
Interventions
Interventions:
*Risk Screen - Suicide Last Done: 10/15/25 10:42
*Neglect/Abuse Screening Last Done: 10/15/25 10:42
*Nursing Disposition Last Done: 10/15/25 11:55
Discharge Date and Time
Discharge Date/Time: 10/15/25 11:57
Print Language: MACEDONIAN
== END 2025-10-15 11:57 | disposition home or self-care (01) ==
LOC: EMR 10:33
PROVIDERS: EMERGENCY PHYSICIAN Emergency Medicine
DX: B34.9 Viral infection, unspecified (principal); E78.00 Pure hypercholesterolemia, unspecified; J45.909 Unspecified asthma, uncomplicated; F39 Unspecified mood [affective] disorder; F41.9 Anxiety disorder, unspecified; F51.4 Sleep terrors [night terrors]; L30.9 Dermatitis, unspecified; F12.90 Cannabis use, unspecified, uncomplicated; F17.200 Nicotine dependence, unspecified, uncomplicated
CPT/HCPCS: 99282